=== PATIENT | male | born 1960 | race Caucasian/White ===

== ENCOUNTER → 2023-08-15 | Outpatient (CLI) | payer OTHER ==
[~2023-08-15] MED LIST: ? BP MED; ALLO300; ATENOLOL-? DOSE; CHOLESTEROL MED; HYDACE5 PO; OXYACE5T PO; PROM25 PO
== END ==
LOC: LAB SHORT 12:21 → PLD 12:21
DX: L57.0 Actinic keratosis (principal)
CPT/HCPCS: 88305; 88312

== ENCOUNTER 2023-12-07 10:39 | Inpatient (IN) | payer OTHER ==
[~2023-12-07] VITALS: Ht 167.6 cm; Wt 126.5 kg
[2023-12-07] VITALS (8 sets, daily range): BP systolic 93–136; BP diastolic 58–94
[2023-12-07 11:26] LABS: BASOPHILS ABSOLUTE AUTO 0.03 K/mm3 (0.00-0.23); BASOPHILS PERCENT AUTO 0 % (0-2); EOSINOPHILS ABSOLUTE AUTO 0.03 K/mm3 (0.00-0.68); EOSINOPHILS PERCENT AUTO 0 % (0-6); Hematocrit 34.7 % (37.0-53.0); Hemoglobin 11.6 g/dL (13.5-17.5); IMMATURE GRAN ABSOLUTE AUTO 0.04 K/mm3 (0.00-0.10); IMMATURE GRAN PERCENT AUTO 0 % (0-1); LYMPHOCYTES ABSOLUTE AUTO 1.06 K/mm3 (0.84-5.20); LYMPHOCYTES PERCENT AUTO 9 % (21-46); MONOCYTES PERCENT AUTO 4 % (4-13); Mean Corpuscular HGB 32.7 pg (26.0-34.0); Mean Corpuscular HGB Conc 33.4 g/dL (31.5-36.5); Mean Corpuscular Volume 98 fL (80-100); Mean Platelet Volume 11.9 fL (9.1-12.4); NEUTROPHILS ABSOLUTE AUTO 9.85 K/mm3 (1.96-9.15); NEUTROPHILS PERCENT AUTO 86 % (41-73); Platelet Count 187 K/mm3 (150-400); RDW Coefficient Variation 14.2 % (11.7-14.2); RDW Standard Deviation 51.1 fL (35.1-46.3); Red Blood Cell Count 3.55 M/mm3 (4.30-5.90); White Blood Cell Count 11.51 K/mm3 (4.00-11.30)
[2023-12-07] MEDS ORDERED: OZEMPIC2 MG/0.75 SQ (12:13)
[2023-12-07] MEDS ORDERED: TAMSULOSIN HCL0.4 M1 PO (12:14)
[2023-12-07] MEDS ORDERED: BENAZEPRIL-HCT1 EAC3 PO ×2 (12:15→14:40)
[2023-12-07 12:40] LABS: Albumin, Blood 3.9 g/dL (3.4-5.0); Albumin/Globulin Ratio 0.9 (0.8-1.8); Bilirubin, Total 0.3 mg/dL (0.1-1.0); Bun/Creatinine Ratio 20.1 (12.0-20.0); Calcium, Blood 10.1 mg/dL (8.5-10.1); Creatinine, Blood 8.71 mg/dL (0.60-1.20); Globulin, Blood 4.3 g/dL (2.2-4.0); Potassium, Blood 6.9 mmol/L (3.5-5.5); Total Protein, Blood 8.2 g/dL (6.4-8.2)
[2023-12-07] MEDS ORDERED: 1/2 NS 250ml250 ML (14:40)
[2023-12-07 17:16] LABS: Albumin, Blood 3.1 g/dL (3.4-5.0); Albumin/Globulin Ratio 0.9 (0.8-1.8); Bilirubin, Total 0.2 mg/dL (0.1-1.0); Bun/Creatinine Ratio 21.2 (12.0-20.0); Calcium, Blood 8.6 mg/dL (8.5-10.1); Creatinine, Blood 7.36 mg/dL (0.60-1.20); Globulin, Blood 3.4 g/dL (2.2-4.0); Potassium, Blood 6.1 mmol/L (3.5-5.5); Total Protein, Blood 6.5 g/dL (6.4-8.2)
--- NOTE | 2023-12-07 17:47 | NUR ---
ARRIVAL TO ICU/SHIFT SUMMARY PT ARRIVES TO ICU AT 1436 FROM ER FOR ARF AND HYPERKALEMIA. REPORT FROM [facility] FELICIANO. PT A&OX 4. FOLLOWS COMMANDS. STATES HE HAS BEEN FEELING ILL SINCE 11/20. REPORTS N/V/D FOR SEVERAL DAYS. REFERRED TO ER FROM PCP AFTER ABNORMAL LABS. LUNGS CLEAR. SR, RATE 80'S. BP STABLE. ABD ROUND, SOFT, NON TENDER. BT X 4. DENIES N/V/D AT THIS TIME. BICARB GTT STARTED PER DR MOJICA. PT UNABLE TO URINATE AT THIS TIME. BLADDER SCAN 104. PIV X 3. SO AT BEDSIDE. WILL CONTINUE TO MONITOR.
[2023-12-07 18:32] LABS: Influenza A, PCR NEGATIVE (NEGATIVE); Influenza B, PCR NEGATIVE (NEGATIVE); Resp Syncytial Virus, PCR NEGATIVE (NEGATIVE); SARS-Cov-2 (COVID-19) PCR, MMC NEGATIVE (NEGATIVE)
--- NOTE | 2023-12-07 20:58 | NUR ---
ASSUMPTION OF CARE BEDSDIE SHIFT REPORT RECEIVED FROM DAYSHIFT RN. PT RESTING IN BED, ALERT AND ORIENTED. PT COMMUNICATES APPROPRIATELY, FOLLOWS COMMANDS, AND IS ABLE TO MAKE NEEDS KNOWN. MOVES EXTREMITIES EQUALLY BILATERALLY, TREMOR NOTED TO BUE, WORSE IN THE RIGHT. HR 90'S SINUS, MAP >65. PT ON RA, OXYGEN SATURATION >95%. PT DENIES CP OR SOB. BOWEL TONES ACTIVE IN ALL 4 QUADRANTS, ABD NONTENDER. PIV TO RAC, LAC AND LEFT HAND. BICARD INFUSING AT 150MLS/HR. BED IN LOWEST POSITION, CALL LIGHT WIHTIN REACH, CARE CONTINUES.
[2023-12-07 21:59] LABS: Anion Gap 8 mmol/L (6-16); Blood Urea Nitrogen 152 mg/dL (8-24); Bun/Creatinine Ratio 22.5 (12.0-20.0); CO2, Blood 14 mmol/L (21-32); Calcium, Blood 8.6 mg/dL (8.5-10.1); Chloride, Blood 117 mmol/L (98-108); Creatinine, Blood 6.77 mg/dL (0.60-1.20); Glomerular Filtration Rate 8 (60-); Glucose, Blood 157 mg/dL (70-99); Phosphorus, Blood 7.2 mg/dL (2.5-4.9); Potassium, Blood 5.5 mmol/L (3.5-5.5); Sodium, Blood 139 mmol/L (136-145)
[2023-12-07 22:36] LABS: Source, Urine Straight Cath
[2023-12-07 22:52] LABS: Bilirubin, Urine Neg (Neg); Blood, Urine 1+ (Neg); Glucose Qualitative, Urine Neg (Neg); Ketones, Urine Neg (Neg); Leukocyte Esterase, Urine Neg (Neg); Nitrite, Urine Neg (Neg); Protein, Urine 2+ (Neg); Specific Gravity, Urine 1.015 (1.003-1.022); Urobilinogen, Urine NORM (Normal)
[2023-12-07 23:21] LABS: Appearance, Urine Clear (Clear); Color, Urine Yellow (P-Yellow)
[2023-12-07 23:23] LABS: Bacteria Few /hpf; Red Blood Cells, Urine 0-2 /hpf (0-2); Squamous Epithelial Cells Few /hpf (Few); White Blood Cells, Urine 0-2 /hpf (0-5)
[2023-12-08] VITALS (9 sets, daily range): BP systolic 91–153; BP diastolic 58–107
[2023-12-08 05:57] LABS: Albumin, Blood 2.8 g/dL (3.4-5.0); Anion Gap 10 mmol/L (6-16); Blood Urea Nitrogen 160 mg/dL (8-24); Bun/Creatinine Ratio 26.3 (12.0-20.0); CO2, Blood 15 mmol/L (21-32); Calcium, Blood 8.7 mg/dL (8.5-10.1); Chloride, Blood 115 mmol/L (98-108); Creatinine, Blood 6.08 mg/dL (0.60-1.20); Glomerular Filtration Rate 10 (60-); Glucose, Blood 165 mg/dL (70-99); Potassium, Blood 4.7 mmol/L (3.5-5.5); Sodium, Blood 140 mmol/L (136-145)
--- NOTE | 2023-12-08 06:13 | NUR ---
SHIFT SUMMARY PT RESTING IN BED, SLEEPING BUT AROUSABLE. PT ANSWERS QUESTIONS APPROPRIATLY, FOLLOWS COMMANDS AND IS ABLE TO MAKE NEEDS KNOWN. PT MOVES EXTREMITIES EQUALLY BILATERALLY. PT HAS TREMOR TO BUE, WORSE IN THE RIGHT. HR 70-90'S SINUS, MAP >65. PT ON CPAP DURING THE NIGHT WITH A 2L BLEED IN, OXYGEN SATURATION >95%. PT DENIES CP OR SOB. BOWEL TONES ACTIVE IN ALL 4 QUADRANTS. ABDOMEN ROUND AND NONTENDER. PT USES URINAL TO VOID. PIV TO RAC AND LAC, POWERGLIDE TO MARI. BICARB INFUSING AT 150MLS/HR. BED IN LOWEST POSITION, CALL LIGHT WITHIN REACH, CARE CONTINUES.
[2023-12-08 17:26] LABS: Anion Gap 7 mmol/L (6-16); Blood Urea Nitrogen 137 mg/dL (8-24); CO2, Blood 21 mmol/L (21-32); Calcium, Blood 8.6 mg/dL (8.5-10.1); Chloride, Blood 112 mmol/L (98-108); Creatinine, Blood 4.28 mg/dL (0.60-1.20); Glomerular Filtration Rate 15 (60-); Glucose, Blood 155 mg/dL (70-99); Phosphorus, Blood 5.5 mg/dL (2.5-4.9); Potassium, Blood 4.2 mmol/L (3.5-5.5); Sodium, Blood 140 mmol/L (136-145)
--- NOTE | 2023-12-08 17:50 | NUR ---
SHIFT SUMMARY PT A&O X 3. FOLLOWS COMMANDS. SO AT BEDSIDE. OCCASIONALLY SLOW TO RESPOND BUT ANSWERS QUESTIONS APPROPRIATELY. MAEW. TREMORS TO BUE IMPROVED SINCE YESTERDAY. STANDBY ASSIST TO TOILET IN ROOM. LUNGS DIM IN BASES. PT P/W/D. SR, RATE 80'S. BP STABLE. PT MADE 560 ML URINE THIS SHIFT. POOR APPETITE, STATES HE DOES NOT LIKE THE FOOD. PG TO IVANNA, PIV TO LA. PLAN TO TRANSFER TO PCU 13 AT SHIFT CHANGE. WILL CONTINUE TO MONITOR UNTIL THEN.
[2023-12-09 00:13] VITALS: BP 127/81
[2023-12-09 03:15] VITALS: BP 106/76
[2023-12-09 05:01] LABS: Albumin, Blood 2.9 g/dL (3.4-5.0); Anion Gap 7 mmol/L (6-16); Blood Urea Nitrogen 139 mg/dL (8-24); Bun/Creatinine Ratio 41.5 (12.0-20.0); CO2, Blood 21 mmol/L (21-32); Calcium, Blood 8.5 mg/dL (8.5-10.1); Chloride, Blood 116 mmol/L (98-108); Creatinine, Blood 3.35 mg/dL (0.60-1.20); Glomerular Filtration Rate 20 (60-); Glucose, Blood 124 mg/dL (70-99); Phosphorus, Blood 4.8 mg/dL (2.5-4.9); Potassium, Blood 4.1 mmol/L (3.5-5.5); Sodium, Blood 144 mmol/L (136-145)
--- NOTE | 2023-12-09 05:53 | NUR ---
EOS: PATIENT IS ALERT AND ORIENTED X 4, WITH NO CONCERNS AT THIS TIME. PLEASANT COOPERATIVE WITH CARE. PATIENT HAS BEEN WALKING TO THE BATHROOM TO USE URINAL INDEPENDENTLY, CALLS WHEN BACK IN BED FOR CPAP TO BE PLACED BACK ON. PATIENT HAD NO SIGNIFICANT EVENTS THROUGH THE NIGHT. DENIES CHEST PAIN PRESSURE OR OSB. IMPROVING LABS. INCREASING URINE OUTPUT.
[2023-12-09 08:12] VITALS: BP 128/73
[2023-12-09 08:37] LABS: BASOPHILS ABSOLUTE AUTO 0.02 K/mm3 (0.00-0.23); BASOPHILS PERCENT AUTO 0 % (0-2); EOSINOPHILS ABSOLUTE AUTO 0.13 K/mm3 (0.00-0.68); EOSINOPHILS PERCENT AUTO 2 % (0-6); Hematocrit 25.9 % (37.0-53.0); Hemoglobin 8.6 g/dL (13.5-17.5); IMMATURE GRAN ABSOLUTE AUTO 0.02 K/mm3 (0.00-0.10); IMMATURE GRAN PERCENT AUTO 0 % (0-1); LYMPHOCYTES ABSOLUTE AUTO 1.56 K/mm3 (0.84-5.20); LYMPHOCYTES PERCENT AUTO 25 % (21-46); MONOCYTES PERCENT AUTO 10 % (4-13); Mean Corpuscular HGB Conc 33.2 g/dL (31.5-36.5); Mean Corpuscular Volume 96 fL (80-100); Mean Platelet Volume 12.4 fL (9.1-12.4); NEUTROPHILS ABSOLUTE AUTO 3.99 K/mm3 (1.96-9.15); NEUTROPHILS PERCENT AUTO 63 % (41-73); Platelet Count 160 K/mm3 (150-400); RDW Coefficient Variation 14.4 % (11.7-14.2); RDW Standard Deviation 50.4 fL (35.1-46.3); Red Blood Cell Count 2.69 M/mm3 (4.30-5.90); White Blood Cell Count 6.32 K/mm3 (4.00-11.30)
[2023-12-09 11:46] VITALS: BP 132/87
--- NOTE | 2023-12-09 17:02 | NUR ---
SHIFT SUMMARY: PT ALERT AND ORIENTED X4, ABLE TO FOLLOW COMMANDS AND MAKE NEEDS KNOWN. COOPERATIVE WITH CARE. STRENGTH EQUAL BILATERALLY. BP STABLE, HR SR 80'S, AFEBRILE, SPO2 >96% ON ROOM AIR. RESPIRTIONS EVEN AND UNLABORED AT REST. BOWEL SOUNDS +, ABD SOFT, NON TENDER. PT WITH POOR PO INTAKE, EDUCATION PROVIDED. PT WITH ADEQUATE URINARY OUTPUT, ABLE TO AMBULATE TO AND FROM BATHROOM IND. CBG RANGED FROM 130-160, COVERED PER EMAR. AT BEDSIDE THROUGHOUT THE DAY, UPDATED ON PT CARE. POWERGLIDE REMAINS IN MARI, DRAWS AND FLUSHES. MD AT BEDSIDE THIS AFTERNOON, PT NOW MED WITH TELE STATUS. BED IN LOW, CALL LIGHT IN REACH, WILL REPORT TO ONCOMING RN.
[2023-12-09 19:51] VITALS: BP 124/72
[2023-12-10 00:01] VITALS: BP 128/74
[2023-12-10 03:31] VITALS: BP 148/85
[2023-12-10 03:53] LABS: Anion Gap 5 mmol/L (6-16); Blood Urea Nitrogen 99 mg/dL (8-24); Bun/Creatinine Ratio 43.6 (12.0-20.0); CO2, Blood 23 mmol/L (21-32); Chloride, Blood 114 mmol/L (98-108); Creatinine, Blood 2.27 mg/dL (0.60-1.20); Glomerular Filtration Rate 31 (60-); Glucose, Blood 127 mg/dL (70-99); Iron Serum 42 ug/dL (65-175); Percent Saturation 21.3 % (20.0-50.0); Phosphorus, Blood 3.3 mg/dL (2.5-4.9); Potassium, Blood 4.4 mmol/L (3.5-5.5); Sodium, Blood 142 mmol/L (136-145); Total Iron Binding Capacity 197 ug/dL (250-450)
--- NOTE | 2023-12-10 04:55 | NUR ---
SHIFT SUMMARY. SHIFT HAS BEEN LARGELY UNREMARKABLE. PT AOX4, PLEASANT, COOPERATIVE WITH CARE. INDEPENDENT WITHIN ROOM. SATTING WELL ON ROOM AIR WHILE AWAKE. HAS BEEN WEARING CPAP WHILE SLEEPING. MOSTLY MAINTAINING SATURATIONS >92% ON CPAP, THIS MORNING WAS OCCASIONALLY DESATURATING INTO LOW-MID 80s. WOULD QUICKLY BOUNCE BACK UP AFTER BRIEF TIME. BUMPED O2 BLEED IN UP TO 5 L AND PT HAS MAINTAINED SATURATIONS >92% SINCE. NO PAIN REPORTED THIS SHIFT. PO INTAKE REMAINS MINIMAL. PT ATTEMPTED TO HAVE SOME CHICKEN NOODLE SOUP LAST NIGHT BUT WAS ONLY ABLE TO TAKE A FEW BITES BEFORE NOT WANTING ANY MORE. INDEPENDENT TRANSFER TO BATHROOM AND PT HAS PEED A FEW TIMES TONIGHT. CALLS APPROPRIATELY FOR ASSISTANCE. BED LOCKED IN LOWEST POSITION CALL LIGHT LEFT WITHIN REACH. PT TRANSFERRING TO MEDICAL FLOOR HERE SOON. WILL PROVIDE REPORT TO RECEIVING NURSE BEFORE TRANSFER. CONTINUING TO MONITOR.
[2023-12-10 05:51] VITALS: BP 133/77
--- NOTE | 2023-12-10 06:14 | NUR ---
TRANSFER NOTE PT ARRIVED FROM PCU TO ROOM 304. ALERT AND ORIENTED X 4. DX IS RENAL FAILURE - ACUTE ON CHRONIC. MED TELE SR. HOB ELEVATED SLIGHTLY. DENIES PAIN/DISCOMFORT. UP AD THEO. CALL LIGHT IN REACH. RAILS UP X 2 FOR SAFETY. JUICE GIVEN VOICED MAY BE HUNGRY. WILL CONTINUE TO MONITOR.
[2023-12-10 06:52] LABS: MYELOPEROXIDASE (MPO) AB,IGG 0 AU/mL (0-19); SERINE PROTEINASE 3 PR3 AB,IGG 0 AU/mL (0-19)
[2023-12-10 07:34] VITALS: BP 124/78
[2023-12-10 08:22] LABS: BASOPHILS ABSOLUTE AUTO 0.02 K/mm3 (0.00-0.23); BASOPHILS PERCENT AUTO 0 % (0-2); EOSINOPHILS ABSOLUTE AUTO 0.35 K/mm3 (0.00-0.68); EOSINOPHILS PERCENT AUTO 6 % (0-6); Hematocrit 24.8 % (37.0-53.0); Hemoglobin 8.4 g/dL (13.5-17.5); IMMATURE GRAN ABSOLUTE AUTO 0.02 K/mm3 (0.00-0.10); IMMATURE GRAN PERCENT AUTO 0 % (0-1); LYMPHOCYTES ABSOLUTE AUTO 1.79 K/mm3 (0.84-5.20); LYMPHOCYTES PERCENT AUTO 28 % (21-46); MONOCYTES ABSOLUTE AUTO 0.66 K/mm3 (0.16-1.47); MONOCYTES PERCENT AUTO 10 % (4-13); Mean Corpuscular HGB 31.8 pg (26.0-34.0); Mean Corpuscular HGB Conc 33.9 g/dL (31.5-36.5); Mean Corpuscular Volume 94 fL (80-100); Mean Platelet Volume 12.3 fL (9.1-12.4); NEUTROPHILS ABSOLUTE AUTO 3.49 K/mm3 (1.96-9.15); NEUTROPHILS PERCENT AUTO 55 % (41-73); Platelet Count 161 K/mm3 (150-400); RDW Coefficient Variation 14.2 % (11.7-14.2); RDW Standard Deviation 48.6 fL (35.1-46.3); Red Blood Cell Count 2.64 M/mm3 (4.30-5.90); White Blood Cell Count 6.33 K/mm3 (4.00-11.30)
[2023-12-10] MEDS ORDERED: GLIP5 PO (10:03)
[2023-12-10] MEDS ORDERED: ONDA4ODT MM (10:04)
[2023-12-10 12:47] LABS: HEPATITIS B SURFACE ANTIGEN Negative (Negative)
[2023-12-11 18:53] LABS: ALBUMIN 2.96 g/dL (3.75-5.01); ALPHA 1 GLOBULIN 0.28 g/dL (0.19-0.46); ALPHA 2 GLOBULIN 0.73 g/dL (0.48-1.05); BETA GLOBULIN 0.73 g/dL (0.48-1.10); IMMUNOFIXATION REFLEX Not Done; TOTAL PROTEIN,SERUM 5.5 g/dL (6.3-8.2)
[2023-12-12 13:57] LABS: QUANTIFERON MITOGEN MINUS NIL 9.93 IU/mL; QUANTIFERON NIL 0.06 IU/mL; QUANTIFERON TB GOLD PLUS Negative (Negative)
== END 2023-12-10 11:00 | disposition home or self-care (01) | DRG 682 ==
LOC: ER 10:39 → PCU 14:38 → ICUE 14:38 → MEDS 14:38 → ICUE 14:47 → PCU 12-08 18:22 → MEDS 12-10 05:50 → ENPENDDIS 12-10 10:32 → MEDS 12-10 11:00
PROVIDERS: Emergency Medicine; Hospitalist; ADMIT Family Medicine
DX: N17.0 Acute kidney failure with tubular necrosis (principal); R57.1 Hypovolemic shock; E87.20 Acidosis, unspecified; I12.9 Hypertensive chronic kidney disease with stage 1 through stage 4 chronic kidney disease, or unspecified chronic kidney disease; E11.22 Type 2 diabetes mellitus with diabetic chronic kidney disease; N18.31 Chronic kidney disease, stage 3a; E87.5 Hyperkalemia; D63.1 Anemia in chronic kidney disease; G47.33 Obstructive sleep apnea (adult) (pediatric)
CPT/HCPCS: 0241U; 36415; 71045; 76770; 80053; 80069; 81001; 82570; 82784; 82947; 83516; 83521; 83540; 83550; 83605; 83880; 84155; 84156; 84165; 84300; 85025; 86334; 86480; 87040; 87340; 93005; 93010; 93306; 94660; 94762; 96361; 96374; 99285-25; A9270; C1751; J0612; J0696; J1644; J1815; J7030; J7042; J7070

== ENCOUNTER → 2024-06-13 | Outpatient (CLI) | payer OTHER ==
[~2024-06-13] MED LIST changes: +1/2 NS 250ml250 ML; +BENAZEPRIL-HCT1 EAC3 PO; +GLIP5 PO; +ONDA4ODT MM; +OZEMPIC2 MG/0.75 SQ; +TAMSULOSIN HCL0.4 M1 PO
== END ==
LOC: LAB SHORT 12:03 → LAB 12:03
DX: D48.5 Neoplasm of uncertain behavior of skin (principal)
CPT/HCPCS: 88305

== ENCOUNTER → 2024-08-29 | Outpatient (CLI) | payer OTHER | LOC: LAB 13:20 → LAB SHORT 13:20 | DX: L08.9 Local infection of the skin and subcutaneous tissue, unspecified (principal); Z48.02 Encounter for removal of sutures | CPT/HCPCS: 87070; 87077; 87147; 87186; 87205 ==